=== PATIENT | male | born 1970 | race Caucasian/White ===

== ENCOUNTER 2021-02-02 19:58 | Emergency (ER) | END 2021-02-02 20:16 | disposition left against medical advice (07) | LOC: BURERS 19:58 | DX: Z53.21 Procedure and treatment not carried out due to patient leaving prior to being seen by health care provider (principal) ==

== ENCOUNTER 2021-02-14 21:32 | Emergency (ER) | payer OTHER ==
[2021-02-14] MEDS ORDERED: predniSONE 20 MG TAB ONE (22:07)
== END 2021-02-14 22:10 | disposition home or self-care (01) ==
LOC: BURERS 21:32
DX: L30.9 Dermatitis, unspecified (principal)
CPT/HCPCS: 99282; J7512

== ENCOUNTER 2021-09-01 15:34 | Emergency (ER) | payer OTHER ==
[2021-09-02 18:34] LABS: SARS-CoV-2 PCR by NAA Not Detected (NotDetected)
== END 2021-09-01 16:06 | disposition home or self-care (01) ==
LOC: BURERS 15:34
DX: R50.9 Fever, unspecified (principal); R05.9 Cough, unspecified; R51.9 Headache, unspecified; R06.02 Shortness of breath; R19.7 Diarrhea, unspecified; R53.83 Other fatigue; R61 Generalized hyperhidrosis; F17.210 Nicotine dependence, cigarettes, uncomplicated; Z20.822 Contact with and (suspected) exposure to COVID-19
CPT/HCPCS: 99283; U0003; U0005

== ENCOUNTER 2022-01-07 13:18 | Emergency (ER) | payer OTHER | END 2022-01-07 14:26 | disposition home or self-care (01) | LOC: BURERS 13:18 | DX: B86 Scabies (principal) | CPT/HCPCS: 99282 ==